=== PATIENT | male | born 1930 | race Caucasian/White ===

== ENCOUNTER 2017-08-30 09:05 | Day surgery (SDC) | payer MEDICARE, BC ==
[2017-08-28 09:43] VITALS: BMI 28.7
[~2017-08-30 09:05] MED LIST: LACTATED RINGERS 1,000 ML IV SCH; MOXIFLOXACIN HCL 0.5% DROPS 3 ML BTL OP ONE; TETRACAINE 0.5% OPHTH (PF) DROPS 4 ML BTL OP ONE; TIMOLOL 0.5% OPHTH DROPS 5 ML BTL OP ONE
[2017-08-30 10:45] VITALS: RESP 16; TEMP 98
[2017-08-30] MEDS: CYCLOPENTOLATE 1% OPHTH SOLN 2 ML BTL OP ONE ×3 (10:53→11:16)
[2017-08-30] MEDS: PHENYLEPHRINE 2.5% OPHTH DRP 2ML OP NR ×3 (11:02→11:21)
[2017-08-30] MEDS ORDERED: LIDOCAINE 1% 20 ML VIAL (10MG/ML) FOR IV START INTRADERMA ONE (11:03)
[2017-08-30] MEDS ORDERED: MIDAZOLAM 2 MG/2 ML VIAL ONE (11:58)
[2017-08-30] MEDS ORDERED: HYALURONATE SODIUM INTRAOCULAR 1 EACH SYRINGE (12MG/ML) INTRAOCULA ONE (12:00)
[2017-08-30] MEDS ORDERED: BALANCED SALT IRRIG SOLN COMB2 15 ML IRRIG.SOLN INTRAOCULA ONE (12:00)
[2017-08-30] MEDS ORDERED: LIDOCAINE 1% (PF) 10MG/ML VIAL MISCELLANE ONE ×2 (12:01)
[2017-08-30] MEDS ORDERED: EPINEPHrine (PF) 1 MG/ML AMP MISCELLANE ONE (12:01)
[2017-08-30] MEDS ORDERED: EPINEPHrine (PF) 0.3 ML in BALANCED SALT IRRIG SOLN COMB2 500 ML IRRIGATION ONE (12:04)
--- NOTE | 2017-08-30 12:42 | P.OP ---
Date of Procedure: 08/30/17 Preoperative Diagnosis: & CS & reg astigmatism Postoperative Diagnosis: same Procedure(s) Performed: PIOL, OD Implants: [id number] 22.0 Anesthesia: MAC Surgeon: Alejandro Villarreal Estimated Blood Loss (ml): 0 Pathology: none sent Condition: stable Disposition: same day Indications for Procedure: blurry vision and astigmatism Operative Findings: no complications
[2017-08-30 13:14] VITALS: BP 134/82; PULSE 65
--- NOTE | 2017-08-30 14:51 | OP ---
OPERATIVE REPORT DATE OF SURGERY: 30 August 2017. PROCEDURE PERFORMED: Phacoemulsification of cataract and intraocular lens implant of the right eye. 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 POSTOPERATIVE DIAGNOSES: Nuclear sclerosis, cortical sclerosis and regular astigmatism. SURGEON: Dr. Alejandro Villarreal. ANESTHESIA: Topical. ESTIMATED BLOOD LOSS: None. SPECIMEN: Taken none. NARRATIVE: After obtaining the appropriate consent, the patient was brought to the operating room. There he was placed under cardiac monitoring, prepped and draped in the usual sterile manner. He was approached from his right temporal side using previously acquired corneal topography information. The axis of 4 degrees was identified and marked with a corneal marking set. At the 11 o'clock position an MVR blade was used to create a paracentesis port in through this opening 1% Xylocaine MPF 50 50 mix with balanced salt solution was injected into the anterior chamber. This was followed by stabilization of the anterior chamber with Amvisc. At the 9 o'clock position, a 2.5 mm keratome was used to create a self-sealing corneal flap incision in a Langerman's fashion. Through this opening a cystotome was introduced to begin a continuous tear capsulorrhexis which was completed using the Utrata forceps. Hydrodissection and hydrodelineation of the lens was accomplished with balanced salt solution. Phacoemulsification of the lens utilizing phaco chop was accomplished at 15.84 seconds at 10% power. Additional Xylocaine MPF was instilled into the anterior chamber. This was followed by removal of the remaining cortex under irrigation and aspiration along with careful polishing of the posterior capsule in the capsule vacuum mode. Additional Amvisc was then used to stabilize the capsular bag and an POONAM Z CT 300 22 diopter spherical equivalent 3 diopter cylindrical correction was placed into the capsular bag without difficulty. The viscoelastic was then removed from in and around the intra-ocular lens and the lens was rotated to align with the 4 degree emily previously placed on the patient's cornea. The lens was gently tapped against the posterior capsule to reduce the chance of rotation. The eye was then brought to normal intraocular pressure through the paracentesis port with balanced salt solution. To ensure watertight integrity ReSure was used on the paracentesis as well as the temporal incision. He then received 2 drops of 0.5% timolol followed by 2 drops of moxifloxacin, was then lightly patched and shielded in the usual manner. There were no complications for the procedure. He tolerated the procedure well and returned to outpatient recovery in good condition. MMPEPE / PATEL: [id number] /
== END 2017-08-30 13:32 | disposition home or self-care (01) ==
LOC: OR 09:05
PROVIDERS: ATTEND Ophthalmology
DX: H25.13 Age-related nuclear cataract, bilateral (principal); H52.223 Regular astigmatism, bilateral; H35.3132 Nonexudative age-related macular degeneration, bilateral, intermediate dry stage; H25.011 Cortical age-related cataract, right eye; H52.03 Hypermetropia, bilateral; H52.4 Presbyopia; I10 Essential (primary) hypertension; E07.9 Disorder of thyroid, unspecified; M19.90 Unspecified osteoarthritis, unspecified site; Z79.82 Long term (current) use of aspirin; Z79.899 Other long term (current) drug therapy
CPT/HCPCS: 66984; V2787; C1780; J2250; J0171; J2001

== ENCOUNTER 2017-09-27 07:57 | Day surgery (SDC) | payer MEDICARE, BC ==
[2017-09-22 15:31] VITALS: BMI 28.7
[~2017-09-27 07:57] MED LIST changes: -LACTATED RINGERS 1,000 ML IV SCH
[2017-09-27] MEDS: CYCLOPENTOLATE 1% OPHTH SOLN 2 ML BTL OP ONE ×3 (09:22→09:34)
[2017-09-27] MEDS: PHENYLEPHRINE 2.5% OPHTH DRP 2ML OP NR ×3 (09:25→09:39)
[2017-09-27 09:26] VITALS: TEMP 98.4
[2017-09-27] MEDS: LACTATED RINGERS 1,000 ML IV SCH ×2 (09:37→11:01)
[2017-09-27] MEDS ORDERED: LIDOCAINE 1% (PF) 10MG/ML VIAL SQ ONE (11:03)
[2017-09-27] MEDS ORDERED: MIDAZOLAM 2 MG/2 ML VIAL ONE (11:03)
[2017-09-27] MEDS ORDERED: fentaNYL (PF) 50 MCG/ML 2 ML AMP ONE (11:03)
[2017-09-27] MEDS ORDERED: BALANCED SALT IRRIG SOLN COMB2 15 ML IRRIG.SOLN INTRAOCULA ONE (11:03)
[2017-09-27] MEDS ORDERED: HYALURONATE SODIUM INTRAOCULAR 1 EACH SYRINGE (12MG/ML) INTRAOCULA ONE (11:03)
[2017-09-27] MEDS ORDERED: EPINEPHrine (PF) 1 MG/ML AMP SQ ONE (11:04)
[2017-09-27] MEDS ORDERED: EPINEPHrine (PF) 0.3 ML in BALANCED SALT IRRIG SOLN COMB2 500 ML IRRIGATION ONE (11:06)
--- NOTE | 2017-09-27 11:38 | P.OP ---
Date of Procedure: 09/27/17 Preoperative Diagnosis: ns & CS reg astigmatism Postoperative Diagnosis: same Procedure(s) Performed: PIOL, OS Implants: ZCT 150 21.50 Anesthesia: MAC Surgeon: Alejandro Villarreal Estimated Blood Loss (ml): 0 Pathology: none sent Condition: stable Disposition: same day Indications for Procedure: BLURRY VISION Operative Findings: no complications
[2017-09-27 11:42] VITALS: RESP 16
[2017-09-27 11:56] VITALS: BP 148/72
[2017-09-27 12:00] VITALS: PULSE 56
--- NOTE | 2017-09-28 10:12 | OP ---
OPERATIVE REPORT DATE OF SURGERY: 09/27/2017. PROCEDURE: Phacoemulsification of cataract and intraocular lens implant of the left eye. PREOPERATIVE DIAGNOSIS: Nuclear sclerosis, cortical sclerosis and regular astigmatism. POSTOPERATIVE DIAGNOSES: Nuclear sclerosis, cortical sclerosis and regular astigmatism. SURGEON: Dr. Alejandro Villarreal. ANESTHESIA: Topical. ESTIMATED BLOOD LOSS: None. SPECIMEN TAKEN: None. NARRATIVE: After obtaining the appropriate consent, the patient was brought to the operating room. There he was placed on cardiac monitoring, prepped and draped in the usual sterile manner. The axis of 173 degrees was identified and marked with a gentian julien marker. At the 5 o'clock position an MVR blade was used to create a paracentesis port. Through this opening, 1% Xylocaine MPF 50:50 mix of balanced salt solution was injected into the capsular bag. This was followed by stabilization of the anterior chamber with Amvisc. At the 3 o'clock position, a 2.5 mm keratome was used to create a self-sealing corneal flap incision in a Langerman's fashion. Through this opening, a cystotome was introduced to begin a continuous tear capsulorrhexis which was completed using the Utrata forceps. Hydrodissection and hydrodelineation of the lens was accomplished with balanced salt solution. Phacoemulsification lens utilizing phaco chop was accomplished in 25.86 seconds at 15% power. Additional Xylocaine MPF was instilled into the anterior chamber. This was followed by removal of the remaining cortex as well as polishing of the posterior capsule in capsule vacuum mode. Additional Amvisc was then used to stabilize the capsular bag and an POONAM ZCT 150 21.5 diopter posterior chamber intraocular lens was then inserted into the capsular bag without difficulty. The remaining viscoelastic from within the anterior chamber and in and around the intraocular lens in the lens capsule was removed. The lens was realigned with the tip of the irrigation aspiration instrument and the lens was then tamponaded against the posterior capsule. The eye was then brought to normal intraocular pressures through the paracentesis port. The incision was confirmed watertight. The patient then received 2 drops of 0.5% timolol followed by 2 drops of moxifloxacin was then lightly patched and shielded in the usual manner. There were no complications from the procedure. He tolerated the procedure well, was returned to outpatient recovery in good condition. MMODL / IJN: [id number] /
== END 2017-09-27 12:24 | disposition home or self-care (01) ==
LOC: OR 07:57
PROVIDERS: ATTEND Ophthalmology
DX: H25.12 Age-related nuclear cataract, left eye (principal); H25.011 Cortical age-related cataract, right eye; H52.223 Regular astigmatism, bilateral; H35.3132 Nonexudative age-related macular degeneration, bilateral, intermediate dry stage; H52.03 Hypermetropia, bilateral; H52.4 Presbyopia; Z96.1 Presence of intraocular lens; I10 Essential (primary) hypertension; J67.0 Farmer's lung; M19.90 Unspecified osteoarthritis, unspecified site; H91.90 Unspecified hearing loss, unspecified ear; E07.9 Disorder of thyroid, unspecified; I48.91 Unspecified atrial fibrillation; J30.2 Other seasonal allergic rhinitis; Z79.82 Long term (current) use of aspirin; Z79.890 Hormone replacement therapy; Z79.899 Other long term (current) drug therapy
CPT/HCPCS: 66984; V2787; C1780; J2250; J0171; J3010; J2001

== ENCOUNTER → 2018-06-22 | Outpatient (CLI) | payer MEDICARE, BC, OTHER ==
--- NOTE | 2018-06-22 11:21 | XR ---
EXAMINATION TYPE: XR chest 2V DATE OF EXAM: 06/22/2018 COMPARISON: NONE HISTORY: Cough TECHNIQUE: Frontal and lateral views of the chest are obtained. FINDINGS: There is unfolding of the thoracic aorta with tortuosity. There is also enlargement of the right paratracheal space. Cardiac silhouette appears within normal limits. No focal consolidation, p leural effusion or pneumothorax. Mild multilevel degenerative changes of the spine are noted. 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 CTA chest is recommended.
== END ==
LOC: RADXRMAIN 10:37
PROVIDERS: ATTEND Family Medicine
DX: R05 Cough (principal)
CPT/HCPCS: 71046

== ENCOUNTER → 2021-05-03 | Outpatient (CLI) | payer MEDICARE, BC ==
--- NOTE | 2021-05-04 11:00 | ECHOF ---
Referral Reason:R94.31 Abnormal EKG R07.9 Chest pain MEASUREMENTS -------- HEIGHT: 182.9 cm WEIGHT: 108.9 kg BP: IVSd: 1.9 cm (0.6 - 1.1) LVIDd: 4.0 cm (3.9 - 5.3) LVPWd: 2.0 cm (0.6 - 1.1) IVSs: 2.4 cm LVIDs: 2.3 cm LVPWs: 2.2 cm LAESV Index (A-L): 43.42 ml/m MV E Taran: 0.83 m/s MV DecT: 212 ms MV A Taran: 1.30 m/s MV E/A Ratio: 0.64 AV maxP.92 mmHg AV meanP.34 mmHg RAP: 5.00 mmHg RVSP: 30.62 mmHg FINDINGS -------- Sinus rhythm. This was a technically adequate study. The left ventricular size is normal. There is severe concentric left ventricular hypertrophy. Ove rall left ventricular systolic function is normal with, an EF between 55 - 60 %. The RV was not well visualized. LA is moderately dilated 34-39 ml/m2 The right atrium was not well visualized. Interatrial and interventricular septum intact. There is mild aortic valve sclerosis. There is no evidence of aortic regurgitation. There is no e vidence of aortic stenosis. Mild mitral regurgitation is present. Mild tricuspid regurgitation present. There is no evidence of pulmonary hypertension. The right v entricular systolic pressure, as measured by Doppler, is 30.62mmHg. The pulmonic valve was not well visualized. The aortic root size is normal. IVC Not well visulized. There is no pericardial effusion. CONCLUSIONS -------- 1. The left ventricular size is normal. 2. There is severe concentric left ventricular hypertrophy. 3. Overall left ventricular systolic function is normal with, an EF between 55 - 60 %. 4. LA is moderately dilated 34-39 ml/m2 5. There is mild aortic valve sclerosis. 6. Mild mitral regurgitation is present. 7. Mild tricuspid regurgitation present. OWNER CONSULTING ENGINEER: [place] [facility]
== END | disposition home or self-care (01) ==
LOC: RADECHMAIN 16:22
PROVIDERS: ATTEND Family Medicine
DX: I51.7 Cardiomegaly (principal); I35.8 Other nonrheumatic aortic valve disorders; I34.0 Nonrheumatic mitral (valve) insufficiency
CPT/HCPCS: 93306